=== PATIENT | female | born 1940 | race Caucasian/White ===

== ENCOUNTER 2024-03-21 12:35 | Inpatient (IN) | payer MEDICARE ==
[2024-03-21 14:38] LABS: #Basophils 0.04 10x3/uL (0.0-0.2); #Eosinophils 0.07 10x3/uL (0.0-0.5); #Monocytes 0.69 10x3/uL (0.0-1.1); #Neutrophils 18.94 10x3/uL (1.5-8.4); %Basophils 0.2 % (0.0-2.0); %Eosinophils 0.3 % (0.0-6.0); %Lymphocytes 5.8 % (18.0-47.0); %Monocytes 3.3 % (0.0-10.0); %Neutrophils 89.8 % (40.0-75.0); Mean Corpuscular HGB CONC 32.6 g/dL (32.0-36.0); Mean Corpuscular Hemoglobin 30.1 pg (27.0-33.0); Mean Corpuscular Volume 92.5 fL (81.6-98.3); Mean Platelet Volume 10.3 fL (7.4-10.4); Platelet Count 269 10x3/uL (150-450); RBC Distribution Width 13.2 % (11.5-14.5); Red Blood Cell (RBC) Count 4.65 10x6/uL (3.90-5.03); White Blood Cell (WBC) Count 21.1 10x3/uL (3.5-10.5)
[2024-03-21 14:49] LABS: ALT (SGPT) 22 U/L (8-55); Albumin 3.7 g/dL (3.4-4.8); Alkaline Phosphatase 95 U/L (40-110); Anion Gap 18 mmol/L (10-20); BUN (Urea Nitrogen) 22 mg/dL (9.8-20.1); Bilirubin, Total 0.8 mg/dL (0.2-1.2); Calc. Creatinine Clearance 0 mL/min (70-130); Calcium 10.1 mg/dL (7.8-10.44); Carbon Dioxide 21 mmol/L (23-31); Chloride 99 mmol/L (98-107); Estimated GFR 29; Globulin 4.7 g/dL (2.4-3.5); Glucose 127 mg/dL (83-110); Potassium 4.1 mmol/L (3.5-5.1); Protein, Total 8.4 g/dL (5.8-8.1); Sodium 134 mmol/L (136-145)
[2024-03-21 14:59] LABS: Actual Bicarbonate (HCO3v) 24.5 mEq/L (22-28); Analyzer IN Cardio CS ER; Base Excess -1.9 mEq/L (-2 - +2); Calcium, Ionized (venous) 1.07 mmol/L (1.16-1.32); Chloride (VBG) 102 mmol/L (98-106); Hematocrit-VBG 38 % (36.0-47.0); Hemoglobin (Hb) 12.8 g/dL (11.7-16.1); Potassium (VBG) 3.64 mmol/L (3.70-5.30); Puncture Site Other Site; RapidComm Collect By lab tech; Sodium 133 mmol/L (133-146); pH (venous) 7.322 (7.32-7.43)
[2024-03-21 15:21] LABS: Bilirubin Neg (Negative); Blood, Urine 250 (Negative); Glucose, Urine (Dipstick) Normal (Negative); Ketone, Urine Negative (Negative); Leukocyte 500 (Negative); Nitrite Positive (Negative); Protein, Urine (Dipstick) 100 mg/dl (Neg-Trace); Urobilinogen Normal mg/dL (Less than 2)
[2024-03-21 15:23] LABS: AST (SGOT) 39 U/L (5-34)
[2024-03-21] MEDS ORDERED: Cefepime 2 GM VIAL ONE (15:25)
[2024-03-21 15:32] LABS: Clarity Turbid (Clear)
[2024-03-21 15:34] LABS: Bacteria/HPF 4+ HPF (None Seen); CAUTI Indications for Culture Pelvic or flank pain; Squamous Epithelial 0-3 HPF (0-3); WBC/HPF Greater Than 50 HPF (0-3)
[2024-03-21 15:36] LABS: Urine Culture Reflex Yes Yes
[2024-03-21] MEDS ORDERED: Acetaminophen 325 MG TAB ONE (16:27)
[2024-03-21 17:40] VITALS: BMI 35.3
[2024-03-21] MEDS ORDERED: Vancomycin Dose by Levels Sliding Scale (Wt 71-99) FS SCH (18:00)
[2024-03-21] MEDS: VANCOMYCIN 1.75 GM/350 ML BAG 1.75 GM in Premix 1 BAG IVPB SCH (18:03)
[2024-03-21] MEDS: Sodium Chloride 0.9% 1,000 ML IV SCH (18:10)
[2024-03-21] MEDS: cefTRIAXone\\ROCEPHIN 2 GM in Sodium Chloride 0.9% 100 ML IVPB SCH (20:19)
[2024-03-21] MEDS: Famotidine 20 MG TAB PO SCH (20:19)
[2024-03-21] MEDS: Acetaminophen 325 MG TAB PO PRN (20:37)
[2024-03-21] MEDS ORDERED: Vancomycin 1 GM in Sodium Chloride 0.9% 250 ML 300 ML IVPB SCH (21:00)
[2024-03-22] MEDS: Loperamide HCl 2 MG CAP PO SCH (00:38)
[2024-03-22 03:54] LABS: #Basophils 0.03 10x3/uL (0.0-0.2); #Eosinophils 0.01 10x3/uL (0.0-0.5); #Monocytes 0.85 10x3/uL (0.0-1.1); #Neutrophils 12.79 10x3/uL (1.5-8.4); %Basophils 0.2 % (0.0-2.0); %Eosinophils 0.1 % (0.0-6.0); %Lymphocytes 7.3 % (18.0-47.0); %Monocytes 5.7 % (0.0-10.0); %Neutrophils 86.2 % (40.0-75.0); Hematocrit 36.3 % (34.9-44.5); Hemoglobin 11.8 g/dL (12.0-15.5); Mean Corpuscular HGB CONC 32.5 g/dL (32.0-36.0); Mean Corpuscular Hemoglobin 29.6 pg (27.0-33.0); Mean Platelet Volume 9.4 fL (7.4-10.4); Platelet Count 196 10x3/uL (150-450); Red Blood Cell (RBC) Count 3.99 10x6/uL (3.90-5.03); White Blood Cell (WBC) Count 14.8 10x3/uL (3.5-10.5)
[2024-03-22 04:11] LABS: Anion Gap 15 mmol/L (10-20); BUN (Urea Nitrogen) 17 mg/dL (9.8-20.1); Calc. Creatinine Clearance 52 mL/min (70-130); Calcium 8.7 mg/dL (7.8-10.44); Carbon Dioxide 19 mmol/L (23-31); Chloride 110 mmol/L (98-107); Estimated GFR 51; Glucose 90 mg/dL (83-110); Potassium 3.9 mmol/L (3.5-5.1); Sodium 140 mmol/L (136-145)
[2024-03-22] MEDS: Bisoprolol Fumarate 5 MG TAB PO SCH (05:49)
[2024-03-22 07:14] LABS: Vancomycin, Random 18.7 ug/mL (See Comment)
[2024-03-22] MEDS: Enoxaparin 30 MG (0.3 mL) SYRINGE SC SCH (10:07)
[2024-03-22 10:27] VITALS: BMI 35.3
[2024-03-22] MEDS: Aspirin 81 mg Enteric Coated Tablet PO SCH (10:31)
[2024-03-22] MEDS: Cholecalciferol 1,000 UNITS (25 MCG) TAB PO SCH (10:31)
[2024-03-22] MEDS: Ezetimibe 10 MG TAB PO SCH (10:31)
[2024-03-22] MEDS: Enoxaparin 40 MG (0.4 mL) SYRINGE SC SCH (10:31)
[2024-03-22] MEDS ORDERED: Iopamidol 300 61% 100 ML VIAL FS ONE (12:28)
[2024-03-22] MEDS: VANCOMYCIN 1.25 GM/250 ML BAG 1.25 GM in Premix 1 BAG IVPB SCH (16:18)
[2024-03-22] MEDS ORDERED: Methocarbamol 500 MG TAB PO PRN (16:28)
[2024-03-22] MEDS ORDERED: Polyethylene Glycol 3350 17 GM Packet PO PRN (16:28)
[2024-03-22] MEDS: Methyl Salicylate/Menthol 85 GM TUBE TOP PRN (18:37)
[2024-03-22] MEDS: Mometasone 200 MCG/Formoterol 5 MCG 60 PUFF INHALER INH SCH (20:15)
[2024-03-22] MEDS: Sodium Chloride 0.9% 1,000 ML IV SCH (20:44)
[2024-03-22] MEDS: CO Q-10 CAPSULE 50 MG PO SCH (20:45)
[2024-03-22] MEDS: Magnesium Oxide 400 MG TAB PO SCH (20:45)
[2024-03-22] MEDS: Rosuvastatin 10 MG TAB PO SCH (20:46)
[2024-03-22] MEDS: Sertraline 100 MG TAB PO SCH (20:46)
[2024-03-22] MEDS: Gabapentin 300 MG CAP PO SCH (20:47)
[2024-03-22] MEDS: Ipratropium/Albuterol 3 ML NEB NEB PRN (20:47)
[2024-03-22] MEDS: traMADol HCl 50 MG TAB PO SCH (20:47)
[2024-03-22] MEDS: clonazePAM 0.5 MG TAB PO SCH (20:49)
[2024-03-22] MEDS: Azelastine 137 MCG/NASAL Spray 30 ML NS SCH (20:51)
[2024-03-22] MEDS ORDERED: Sacubitril 24MG/Valsartan 26 MG TAB PO SCH (21:00)
[2024-03-22] MEDS ORDERED: ALPRAZolam 1 MG TAB PO SCH (21:00)
[2024-03-23] MEDS: Guaifenesin DM 100-10/5 ML UDCUP PO PRN (01:33)
[2024-03-23] MEDS: Furosemide 40 MG (4 mL) VIAL SLOW IVP SCH (02:30)
[2024-03-23 02:54] LABS: Troponin I 0.016 ng/mL (< 0.028); Vancomycin, Random 20.4 ug/mL (See Comment)
[2024-03-23 03:20] LABS: #Basophils 0.03 10x3/uL (0.0-0.2); #Eosinophils 0.01 10x3/uL (0.0-0.5); #Monocytes 0.69 10x3/uL (0.0-1.1); #Neutrophils 9.78 10x3/uL (1.5-8.4); %Basophils 0.2 % (0.0-2.0); %Eosinophils 0.1 % (0.0-6.0); %Monocytes 5.7 % (0.0-10.0); %Neutrophils 81.3 % (40.0-75.0); Hemoglobin 11.1 g/dL (12.0-15.5); Mean Corpuscular HGB CONC 32.6 g/dL (32.0-36.0); Mean Corpuscular Hemoglobin 29.3 pg (27.0-33.0); Mean Corpuscular Volume 89.7 fL (81.6-98.3); Platelet Count 225 10x3/uL (150-450); RBC Distribution Width 13.2 % (11.5-14.5); Red Blood Cell (RBC) Count 3.79 10x6/uL (3.90-5.03)
[2024-03-23 03:32] LABS: Anion Gap 14 mmol/L (10-20); BUN (Urea Nitrogen) 13 mg/dL (9.8-20.1); Calc. Creatinine Clearance 65 mL/min (70-130); Calcium 8.9 mg/dL (7.8-10.44); Carbon Dioxide 19 mmol/L (23-31); Chloride 108 mmol/L (98-107); Estimated GFR 67; Glucose 150 mg/dL (83-110); Potassium 3.3 mmol/L (3.5-5.1); Sodium 138 mmol/L (136-145)
[2024-03-23] MEDS: Meropenem 1 GM in Sodium Chloride 0.9% 100 ML IVPB SCH ×3 (07:00→16:08)
[2024-03-23] MEDS: Potassium Chloride 20 MEQ TAB PO SCH (07:27)
[2024-03-23] MEDS: Levothyroxine Sodium 88 MCG TAB PO SCH (07:27)
[2024-03-23 08:35] LABS: Troponin I 0.019 ng/mL (< 0.028)
[2024-03-23] MEDS ORDERED: Bisoprolol Fumarate 5 MG TAB PO SCH (09:00)
[2024-03-23] MEDS: Spironolactone 25 MG TAB PO SCH (09:40)
[2024-03-23] MEDS: Bisoprolol Fumarate 5 MG TAB PO SCH (09:41)
[2024-03-23] MEDS: Sacubitril 24MG/Valsartan 26 MG TAB PO SCH (09:42)
[2024-03-23] MEDS: Furosemide 20 MG (2 mL) VIAL SLOW IVP SCH (09:42)
[2024-03-23] MEDS: Saccharomyces boulardii 250 MG CAP PO SCH (09:42)
[2024-03-23] MEDS: Multivit, Therapeutic 1 TAB PO SCH (09:42)
[2024-03-23] MEDS: Fluticasone Propionate Nasal Spray 16 gm Bottle NASAL SCH (09:43)
[2024-03-23] MEDS: Pantoprazole DR 40 MG TAB PO SCH (09:43)
[2024-03-23] MEDS: VANCOMYCIN 1.25 GM/250 ML BAG 1.25 GM in Premix 1 BAG IVPB SCH (12:51)
[2024-03-24 03:40] LABS: #Basophils 0.03 10x3/uL (0.0-0.2); #Eosinophils 0.05 10x3/uL (0.0-0.5); #Neutrophils 5.86 10x3/uL (1.5-8.4); %Basophils 0.4 % (0.0-2.0); %Eosinophils 0.6 % (0.0-6.0); %Monocytes 9.9 % (0.0-10.0); %Neutrophils 72.1 % (40.0-75.0); Hematocrit 31.8 % (34.9-44.5); Hemoglobin 10.7 g/dL (12.0-15.5); Mean Corpuscular HGB CONC 33.6 g/dL (32.0-36.0); Mean Corpuscular Hemoglobin 30.1 pg (27.0-33.0); Mean Corpuscular Volume 89.6 fL (81.6-98.3); Mean Platelet Volume 9.2 fL (7.4-10.4); Platelet Count 228 10x3/uL (150-450); RBC Distribution Width 13.2 % (11.5-14.5); Red Blood Cell (RBC) Count 3.55 10x6/uL (3.90-5.03); White Blood Cell (WBC) Count 8.1 10x3/uL (3.5-10.5)
[2024-03-24 03:56] LABS: Anion Gap 17 mmol/L (10-20); BUN (Urea Nitrogen) 14 mg/dL (9.8-20.1); Calc. Creatinine Clearance 65 mL/min (70-130); Calcium 8.8 mg/dL (7.8-10.44); Carbon Dioxide 19 mmol/L (23-31); Chloride 108 mmol/L (98-107); Estimated GFR 67; Glucose 98 mg/dL (83-110); Potassium 3.6 mmol/L (3.5-5.1); Sodium 140 mmol/L (136-145)
[2024-03-24] MEDS: Furosemide 20 MG (2 mL) VIAL SLOW IVP SCH (07:18)
[2024-03-24] MEDS: Potassium Chloride 20 MEQ TAB PO SCH (08:55)
[2024-03-24] MEDS: guaiFENesin ER 600 MG TAB PO SCH (08:56)
[2024-03-24] MEDS: Loperamide HCl 2 MG CAP PO PRN (16:39)
[2024-03-25 04:19] VITALS: TEMP 98
[2024-03-25 07:35] VITALS: BP 101/58
[2024-03-25] MEDS: Fosfomycin 3 GM/Packet PO SCH (09:41)
== END 2024-03-25 11:30 | disposition home or self-care (01) | DRG 871 ==
LOC: CSHERS 12:35 → CSHTELE 16:28
PROVIDERS: ADMIT Internal Medicine; ATTEND Internal Medicine
PROC: 3E03329 Introduction of Other Anti-infective into Peripheral Vein, Percutaneous Approach (ICD-10-PCS; principal; 2024-03-21)
PROC: 5A09357 Assistance with Respiratory Ventilation, Less than 24 Consecutive Hours, Continuous Positive Airway Pressure (ICD-10-PCS; 2024-03-23)
DX: A41.51 Sepsis due to Escherichia coli [E. coli] (principal); I50.33 Acute on chronic diastolic (congestive) heart failure; J96.01 Acute respiratory failure with hypoxia; N39.0 Urinary tract infection, site not specified; N17.9 Acute kidney failure, unspecified; I47.20 Ventricular tachycardia, unspecified; I13.0 Hypertensive heart and chronic kidney disease with heart failure and stage 1 through stage 4 chronic kidney disease, or unspecified chronic kidney disease; N20.1 Calculus of ureter; Z88.8 Allergy status to other drugs, medicaments and biological substances; Z95.0 Presence of cardiac pacemaker; E78.5 Hyperlipidemia, unspecified; Z98.890 Other specified postprocedural states; Z90.710 Acquired absence of both cervix and uterus; N18.9 Chronic kidney disease, unspecified; Z66 Do not resuscitate; Z87.891 Personal history of nicotine dependence; R65.20 Severe sepsis without septic shock; Z79.82 Long term (current) use of aspirin; J44.9 Chronic obstructive pulmonary disease, unspecified; I49.5 Sick sinus syndrome
CPT/HCPCS: 36415; 51701; 71045; 71260; 74176; 74177; 80048; 80053; 80202; 81001; 82805; 83605; 83880; 84145; 85025; 87040; 87077; 87081; 87086; 87186; 87324; 87428; 87449; 93005; 93010; 93306; 94640; 94660; 94664; 94760; 94762; 96374; 96375; J0692; J0696; J1650; J1940; J2185; J3370; J7030; J7620; Q9967